=== PATIENT | male | born 1980 | race Caucasian/White ===

== ENCOUNTER 2019-10-02 17:45 | Emergency (ER) | payer SELFPAY | END 2019-10-02 20:25 | disposition home or self-care (01) | LOC: BURERS 17:45 | DX: S90.32XA Contusion of left foot, initial encounter (principal); F10.129 Alcohol abuse with intoxication, unspecified; F17.210 Nicotine dependence, cigarettes, uncomplicated; W17.2XXA Fall into hole, initial encounter | CPT/HCPCS: 99284 ==